=== PATIENT | female | born 1995 | race Caucasian/White ===

== ENCOUNTER 2019-01-14 15:20 | Emergency (ER) | payer OTHER ==
[~2019-01-14] VITALS: Ht 160 cm; Wt 58.1 kg
[2019-01-14 15:35] VITALS: Ht 160 cm; Wt 58.1 kg
[2019-01-14 16:47] LABS: UA SPECIFIC GRAVITY 1.025 (1.005-1.035); microscopic required? YES; urine erythrocyte TRACE (NEGATIVE)
[2019-01-14 17:22] VITALS: BP 119/86
== END 2019-01-14 17:22 | disposition home or self-care (01) ==
LOC: ED 15:20
PROVIDERS: Emergency Medicine
DX: B08.4 Enteroviral vesicular stomatitis with exanthem (principal); N39.0 Urinary tract infection, site not specified